=== PATIENT | female | born 1980 | race Caucasian/White ===

== ENCOUNTER 2017-04-04 07:02 | Emergency (ER) | payer OTHER ==
[2017-04-04 07:14] VITALS: BP 142/86
--- NOTE | 2017-04-04 07:26 | UC ---
Throat Pain/Nasal Parveen HPI - HPI Summary HPI Summary: ONSET YESTERDAY OF RIGHT SIDED ST, PAIN WITH SWALLOWING, NASAL CONGESTION AND RIGHT EAR PAIN. NO COUGH, FEVER, N/V/D. IS CONCERNED ABOUT STREP. - History of Current Complaint Chief Complaint: UCGeneralIllness Stated Complaint: EAR PAIN, SORE THROAT Time Seen by Provider: 04/04/17 07:11 Hx Obtained From: Patient Hx Last Menstrual Period: 1 week Onset/Duration: Gradual Onset, Lasting Days - 1 DAY, Still Present Severity: Moderate Pain Intensity: 5 Pain Scale Used: 0-10 Numeric Cough: None Associated Signs & Symptoms: Positive: Sinus Discomfort, Nasal Discharge. Negative: Fever - Allergies/Home Medications Allergies/Adverse Reactions: Allergies Allergy/AdvReac Type Severity Reaction Status Date / Time No Known Allergies Allergy Verified 04/04/17 07:14 Home Medications: Home Medications Ibuprofen [Advil] 4 tab PO Q8HR PRN 04/04/17 [History Confirmed 04/04/17] Multivitamin [Multiple Vitamins] 1 tab PO DAILY 04/04/17 [History Confirmed ] Norethindrone-Ethinyl Estrad [Alyacen 1-35-28 Tablet] 1 tab PO DAILY 04/04/17 [ History Confirmed 04/04/17] PMH/Surg Hx/FS Hx/Imm Hx Previously Healthy: Yes - Surgical History Surgical History: None Surgery Procedure, Year, and Place: denies - Family History Known Family History: Positive: Hypertension - Social History Alcohol Use: Weekly Alcohol Amount: wine Substance Use Type: None Smoking Status (MU): Light Every Day Tobacco Smoker Type: Cigarettes - Immunization History Most Recent Tetanus Shot: UTD Review of Systems Constitutional: Negative ENT: Sore Throat, Nasal Discharge Respiratory: Negative Cardiovascular: Negative Gastrointestinal: Negative Neurological: Headache All Other Systems Reviewed And Are Negative: Yes Physical Exam Triage Information Reviewed: Yes Appearance: Well-Appearing, No Pain Distress, Well-Nourished Vital Signs: Initial Vital Signs Temp 98.5 F 04/04/17 07:11 Pulse 82 04/04/17 07:11 Resp 20 04/04/17 07:11 BP 142/86 04/04/17 07:11 Pulse Ox 100 04/04/17 07:11 Vital Signs Reviewed: Yes Eyes: Positive: Conjunctiva Clear ENT: Positive: Hearing grossly normal, Pharynx normal, TMs normal - RIGHT EAC INITIALLY OCCLUDED WITH CERUMEN - NORMAL TM SEEN AFTER SUCCESSFUL IRRIGATION Neck: Positive: Supple, Nontender, No Lymphadenopathy Respiratory Exam: Normal Cardiovascular Exam: Normal Abdomen Description: Positive: Soft Musculoskeletal: Positive: No Edema Neurological: Positive: Alert Psychological: Positive: Age Appropriate Behavior Skin: Negative: rashes Diagnostics - Laboratory Diagnostic Studies Completed/Ordered: STREP NEG Throat Pain/Nasal Course/Dx - Differential Dx/Diagnosis Provider Diagnoses: ACUTE PHARYNGITIS Discharge - Discharge Plan Condition: Stable Disposition: HOME Patient Education Materials: Pharyngitis (ED) Referrals: Taryn Soriano MD [Primary Care Provider] - If Needed Additional Instructions: STREP TEST NEGATIVE. YOUR SYMPTOMS ARE LIKELY VIRALLY MEDIATED AND SHOULD RESOLVE ON THEIR OWN WITH TIME. REST, HYDRATE, OTC MEDS NEEDED. SEEK FOLLOW- UP IF YOU ARE NOT IMPROVING OVER THE NEXT 1-2 WEEKS.
== END 2017-04-04 07:43 | disposition home or self-care (01) ==
LOC: UCEAST 07:02
DX: J02.9 Acute pharyngitis, unspecified (principal); R09.81 Nasal congestion; R51 Headache; H92.01 Otalgia, right ear; F17.210 Nicotine dependence, cigarettes, uncomplicated
CPT/HCPCS: 87651; 99212; G0463